=== PATIENT | male | born 2005 | race Caucasian/White ===

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

== ENCOUNTER 2024-05-31 18:23 | Emergency (ER) | payer SELFPAY ==
--- NOTE | 2024-05-31 18:40 | EDPHYS ---
Physician Documentation [facility] Name: Tony Marmolejo Age: 18 yrs Sex: Male : 2005 Arrival Date: 05/31/2024 Time: 18:23 Bed IW1 Private MD: ED Physician Dorota Hernandez HPI: 05/31 18:36 This 18 yrs old Male presents to ER via Ambulatory with complaints of Sore Throat. kb 18:36 Pt is a 18 year old male who presents for sore throat, swollen tonsils that started kb yesterday with subjective fever this morning. States he has had tonsillitis 4 times in the last few months and this feels the same. denies cough, congestion. . Historical: - Allergies: 18:36 No Known Allergies; tm6 - PMHx: 18:36 None; tm6 - PSHx: 18:36 None; tm6 - Immunization history:: Client reports having NOT received the Covid vaccine. - Infectious Disease History:: Denies. - Social history:: Smoking status: Reported history of juuling and/or vaping. Patient uses alcohol, occasionally. ROS: 18:36 Constitutional: As per HPI kb Exam: 18:36 Constitutional: This is a well developed, well nourished patient who is awake, alert, kb and in no acute distress. Head/Face: Normocephalic, atraumatic. Cardiovascular: Regular rate Respiratory: Respirations even and unlabored. No increased work of breathing. Talking in full sentences Skin: Warm, dry with normal turgor. Normal color. MS/ Extremity: Pulses equal, no cyanosis. Neurovascular intact. Full, normal range of motion. Neuro: Awake and alert, GCS 15, oriented to person, place, time, and situation. 18:36 ENT: Posterior pharynx: Airway: normal, Tonsils: bilaterally enlarged, with erythema, Uvula: normal, midline, swelling, that is moderate, erythema, that is marked, Vital Signs: 18:33 Temp 98.8; Weight 90.72 kg; Height 6 ft. 0 in. ; tm6 18:33 Pulse 65; Resp 19; Pulse Ox 100% on R/A; tm6 18:36 BP 122 / 84; MAP 97 mmHg; tm6 18:33 Body Mass Index 27.12 (90.72 kg, 182.88 cm) - Percentile 86.1 % tm6 MDM: 18:27 Medical Screening Exam initiated kb 18:37 Differential diagnosis: pharyngitis, tonsillitis, strep, bar captain. Data reviewed: vital kb signs, nurses notes. Test considered but Not performed: CT: ct soft tissue neck considered but swelling is bilateral, no trismus, MACHINIST APPRENTICE unlikely. Historians other than the Patient: Spouse/Significant Other: sig other. Counseling: I had a detailed discussion with the patient and/or guardian regarding the historical points, exam findings, and any diagnostic results supporting the discharge/admit diagnosis, the need for outpatient follow up, an ENT specialist, to return to the emergency department if symptoms worsen or persist or if there are any questions or concerns that arise at home. 05/31 18:36 Order name: Strep kb Administered Medications: 18:43 Drug: Amoxicillin-Clavulanate PO 875 mg PO once Route: PO; tm6 18:43 Follow up: Response: Medication administered at discharge. tm6 Disposition Summary: 05/31/24 18:39 Discharge Ordered Notes: Location: Home kb Condition: Stable kb Diagnosis - Streptococcal pharyngitis kb Followup: kb - With: Emergency Department - When: As needed - Reason: Worsening of condition Followup: kb - With: Private Physician - When: 2 - 3 days - Reason: Recheck today's complaints, Continuance of care, Re-evaluation by your physician Discharge Instructions: - Discharge Summary Sheet kb - Strep Throat, Adult, [id number] kb Forms: - Medication Reconciliation Form kb - Antibiotic Education kb - Prescription Opioid Use kb - Patient Portal Instructions kb - Leadership Thank You Letter kb Prescriptions: - Augmentin 875-125 mg Oral Tablet - take 1 tablet ORAL route every 12 hours for 10 days; 20 tablet; Refills: 0, kb Product Selection Permitted Signatures: Dispatcher [employer] Eliana Lambert FNP-C FNP-Ckb Masterson, Tawney RN RN tm6
--- NOTE | 2024-05-31 18:40 | ER ---
Nurse's Notes [facility] Name: Tony Marmolejo Age: 18 yrs Sex: Male : 2005 Arrival Date: 05/31/2024 Time: 18:23 Bed IW1 Private MD: Diagnosis: Streptococcal pharyngitis Presentation: 05/31 18:33 Chief complaint: Patient states: I have had tonsillitis 4-5 times in the past few tm6 months. My throat started hurting yesterday. Coronavirus screen: Client denies travel out of the [place] in the last 14 days. Ebola Screen: Patient negative for fever greater than or equal to 101.5 degrees Fahrenheit, and additional compatible Ebola Virus Disease symptoms Patient denies exposure to infectious person. Patient denies travel to an Ebola-affected area in the 21 days before illness onset. No symptoms or risks identified at this time. Initial Sepsis Screen: Does the patient meet any 2 criteria? No. Patient's initial sepsis screen is negative. Does the patient have a suspected source of infection? No. Patient's initial sepsis screen is negative. Risk Assessment: Do you want to hurt yourself or someone else? Patient reports no desire to harm self or others. Onset of symptoms was May 30, 2024. 18:33 Method Of Arrival: Ambulatory tm6 18:33 Acuity: ASIF 4 tm6 Triage Assessment: 18:33 General: Appears in no apparent distress. Behavior is calm, cooperative. Pain: tm6 Complains of pain in throat Pain began 1 day ago. EENT: Throat is reddened has enlarged tonsils Reports pain in throat. Neuro: Level of Consciousness is awake, alert, obeys commands, Oriented to person, place, time, situation. Cardiovascular: Patient's skin is warm and dry. Respiratory: Airway is patent Respiratory effort is even, unlabored, Respiratory pattern is regular, symmetrical. GI: No signs and/or symptoms were reported involving the gastrointestinal system. Abdomen is flat, non-distended. : No signs and/or symptoms were reported regarding the genitourinary system. Derm: No signs and/or symptoms reported regarding the dermatologic system. Musculoskeletal: No signs and/or symptoms reported regarding the musculoskeletal system. Historical: - Allergies: 18:36 No Known Allergies; tm6 - PMHx: 18:36 None; tm6 - PSHx: 18:36 None; tm6 - Immunization history:: Client reports having NOT received the Covid vaccine. - Infectious Disease History:: Denies. - Social history:: Smoking status: Reported history of juuling and/or vaping. Patient uses alcohol, occasionally. Screenin:45 [facility] ED Fall Risk Assessment (Adult) History of falling in the last 3 months, tm6 including since admission No falls in past 3 months (0 pts) Confusion or Disorientation No (0 pts) Intoxicated or Sedated No (0 pts) Impaired Gait No (0 pts) Mobility Assist Device Used No (0 pt) Altered Elimination No (0 pt) Score/Fall Risk Level 0 - 2 = Low Risk Oriented to surroundings, Maintained a safe environment, Educated pt \T\ family on fall prevention, incl call for assistance when getting out of bed. Abuse screen: Denies threats or abuse. Denies injuries from another. Nutritional screening: No deficits noted. Tuberculosis screening: No symptoms or risk factors identified. Assessment: 18:45 Reassessment: see triage assessment. Respiratory: Airway is patent Respiratory effort tm6 is even, unlabored, Respiratory pattern is regular, symmetrical, Breath sounds are clear. Vital Signs: 18:33 Temp 98.8; Weight 90.72 kg; Height 6 ft. 0 in. ; tm6 18:33 Pulse 65; Resp 19; Pulse Ox 100% on R/A; tm6 18:36 BP 122 / 84; MAP 97 mmHg; tm6 18:33 Body Mass Index 27.12 (90.72 kg, 182.88 cm) - Percentile 86.1 % tm6 ED Course: 18:27 Patient arrived in ED. mr 18:27 Eliana Guerra FNP-C is [facility]. kb 18:27 Dorota Hernandez MD is Attending Physician. kb 18:33 Arm band placed on right wrist. tm6 18:34 Triage completed. tm6 18:39 Strep Sent. tm6 18:45 Patient has correct armband on for positive identification. Provided Education on: use tm6 of prescription medication, follow up with ENT. 18:45 No provider procedures requiring assistance completed. Patient did not have IV access tm6 during this emergency room visit. Administered Medications: 18:43 Drug: Amoxicillin-Clavulanate PO 875 mg PO once Route: PO; tm6 18:43 Follow up: Response: Medication administered at discharge. tm6 Medication: 18:45 VIS not applicable for this client. tm6 Outcome: 18:39 Discharge ordered by . reggie 18:45 Discharged to home ambulatory, with friend, tm6 18:45 Condition: stable 18:45 Discharge instructions given to patient, friend, Instructed on discharge instructions, follow up and referral plans. medication usage, Demonstrated understanding of instructions, follow-up care, medications, Prescriptions given X 1, 18:46 Patient left the ED. tm6 Signatures: Eliana Guerra, TEMPERATURE REGULATOR-C TEMPERATURE REGULATOR-Anamika Wood, Reg Reg mr Anaya Park, RN RN tm6
[2024-05-31] MEDS ORDERED: AMOX/K CLAV 875 MG TAB ONE (18:41)
[2024-05-31 18:50] VITALS: TEMP 98.8; O2SAT 100
[2024-05-31 18:51] VITALS: BP 122/84
== END 2024-05-31 18:46 | disposition home or self-care (01) ==
LOC: ER 18:23
DX: J02.0 Streptococcal pharyngitis (principal)
CPT/HCPCS: 87070; 87081; 99283

== ENCOUNTER 2024-06-01 00:53 | Emergency (ER) | payer SELFPAY ==
[2024-06-01] MEDS ORDERED: CEFTRIAXONE 1000 MG/VIAL ONE (01:15)
[2024-06-01] MEDS ORDERED: ACETAMINOPHEN 500 MG TAB ONE (01:16)
[2024-06-01] MEDS ORDERED: ONDANSETRON 4 MG (ODT) TAB ONE (01:16)
[2024-06-01] MEDS ORDERED: KETOROLAC 30 MG/ML INJ ONE (01:16)
[2024-06-01] MEDS ORDERED: TRAMADOL HCL 50 MG TAB ONE (01:17)
[2024-06-01] MEDS ORDERED: WATER FOR INJ,STERILE 10 ML ONE (01:17)
--- NOTE | 2024-06-01 01:39 | EDPHYS ---
Physician Documentation [facility] Name: Tony Marmolejo Age: 18 yrs Sex: Male : 2005 Arrival Date: 06/01/2024 Time: 00:53 Bed DX3 Private MD: ED Physician Jose F Jacobs HPI: 06/01 01:00 This 18 yrs old Other Race Male presents to ER via Unassigned with complaints of Sore sp4 Throat. Historical: - Allergies: 00:56 No Known Allergies; ha1 - PMHx: 00:56 None; ha1 - Immunization history:: Adult Immunizations up to date. - Infectious Disease History:: Denies. - Social history:: Smoking status: Reported history of juuling and/or vaping. Vital Signs: 00:59 BP 134 / 82; Pulse 106; Resp 19 S; Temp 103; Pulse Ox 96% on R/A; Weight 95.25 kg; ha1 Height 6 ft. 0 in. ; 01:45 BP 131 / 81; Pulse 100; Resp 19 S; Temp 100.2; Pulse Ox 100% on R/A; ha1 00:59 Body Mass Index 28.48 (95.25 kg, 182.88 cm) - Percentile 91.0 % ha1 MDM: 01:11 Medical Screening Exam initiated sp4 Administered Medications: 01:20 Drug: traMADol PO 100 mg PO once Route: PO; ha1 01:51 Follow up: Response: No adverse reaction; Marked relief of symptoms ha1 01:20 Drug: Acetaminophen PO 500 mg PO once Route: PO; ha1 01:50 Follow up: Response: No adverse reaction; Marked relief of symptoms; Temperature is ha1 decreased 01:20 Drug: Ondansetron PO 8 mg PO once Route: PO; ha1 01:49 Follow up: Response: No adverse reaction ha1 01:22 Drug: Rocephin (cefTRIAXone) IM 1 grams IM once Route: IM; Site: left deltoid; ha1 01:50 Follow up: Response: No adverse reaction; Marked relief of symptoms ha1 01:25 Drug: Ketorolac IM 60 mg IM once Route: IM; Site: right deltoid; ha1 01:52 Follow up: Response: No adverse reaction; Marked relief of symptoms ha1 Disposition Summary: 06/01/24 01:38 Discharge Ordered Notes: Continue Augmentin that was prescribed on the prior ER visit Location: Home sp4 Problem: new sp4 Symptoms: have improved sp4 Condition: Stable sp4 Diagnosis - Acute Exudative Tonsillitis sp4 Followup: sp4 - With: Marine Knox MD - When: 10 - 14 days - Reason: Recheck today's complaints Discharge Instructions: - Discharge Summary Sheet sp4 - Tonsillitis, [id number] sp4 Forms: - Patient Portal Instructions sp4 Signatures: Alina Brannon RN RN ha1 Jose F Jacobs MD MD sp4
--- NOTE | 2024-06-01 01:39 | ER ---
Nurse's Notes [facility] Name: Tony Marmolejo Age: 18 yrs Sex: Male : 2005 Arrival Date: 06/01/2024 Time: 00:53 Bed DX3 Private MD: Diagnosis: Acute Exudative Tonsillitis Presentation: 06/01 00:59 Chief complaint: SORE THROAT AND FEVER, WAS HERE TODAY GOT PRESCRIBE ANTIBIOTICS BUT ha1 WAS UNABLE TO PICK IT UP FROM PHARMACY. TOOK 500 MG OF TYLENOL. 00:59 Coronavirus screen: Vaccine status: Patient reports being unvaccinated. Ebola Screen: ha1 No symptoms or risks identified at this time. Initial Sepsis Screen: Does the patient meet any 2 criteria? No. Patient's initial sepsis screen is negative. Does the patient have a suspected source of infection? No. Patient's initial sepsis screen is negative. Risk Assessment: Do you want to hurt yourself or someone else? Patient reports no desire to harm self or others. Onset of symptoms was June 01, 2024. 00:59 Method Of Arrival: Ambulatory ha1 00:59 Acuity: ASIF 4 ha1 Triage Assessment: 00:56 General: Appears uncomfortable, Behavior is cooperative. Pain: Complains of pain in ha1 SORE THROAT Pain does not radiate. Pain currently is 9 out of 10 on a pain scale. Quality of pain is described as burning, aching, Pain began 2-3 days ago. EENT: Throat is reddened. Neuro: Level of Consciousness is awake, alert, obeys commands, Oriented to person, place, time, situation. Cardiovascular: Capillary refill < 3 seconds Patient's skin is warm and dry. Respiratory: Airway is patent Respiratory effort is even, unlabored, Respiratory pattern is regular, symmetrical. GI: No signs and/or symptoms were reported involving the gastrointestinal system. Abdomen is round non-distended. : No signs and/or symptoms were reported regarding the genitourinary system. Derm: Skin is pink, warm \T\ dry. Musculoskeletal: Circulation, motion, and sensation intact. Range of motion: intact in all extremities. Historical: - Allergies: 00:56 No Known Allergies; ha1 - PMHx: 00:56 None; ha1 - Immunization history:: Adult Immunizations up to date. - Infectious Disease History:: Denies. - Social history:: Smoking status: Reported history of juuling and/or vaping. Screenin:42 [facility] ED Fall Risk Assessment (Adult) History of falling in the last 3 months, ha1 including since admission No falls in past 3 months (0 pts) Confusion or Disorientation No (0 pts) Intoxicated or Sedated No (0 pts) Impaired Gait No (0 pts) Mobility Assist Device Used No (0 pt) Altered Elimination No (0 pt) Score/Fall Risk Level 0 - 2 = Low Risk Oriented to surroundings, Maintained a safe environment, Hourly rounding (assess needs \T\ fall precautionary measures) done. Abuse screen: Denies threats or abuse. Denies injuries from another. Nutritional screening: No deficits noted. Tuberculosis screening: No symptoms or risk factors identified. Assessment: 00:56 Reassessment: SEE TRIAGE ASSESSMENT. ha1 01:53 Reassessment: Patient and/or family updated on plan of care and expected duration. Pain ha1 level reassessed. Patient is alert, oriented x 3, equal unlabored respirations, skin warm/dry/pink. Patient states symptoms have improved. Vital Signs: 00:59 BP 134 / 82; Pulse 106; Resp 19 S; Temp 103; Pulse Ox 96% on R/A; Weight 95.25 kg; ha1 Height 6 ft. 0 in. ; 01:45 BP 131 / 81; Pulse 100; Resp 19 S; Temp 100.2; Pulse Ox 100% on R/A; ha1 00:59 Body Mass Index 28.48 (95.25 kg, 182.88 cm) - Percentile 91.0 % ha1 ED Course: 00:54 Patient arrived in ED. im 00:56 Patient has correct armband on for positive identification. Bed in low position. Call ha1 light in reach. Side rails up X 1. Adult w/ patient. 00:56 Arm band placed on right wrist. ha1 01:00 Jose F Jacobs MD is Attending Physician. sp4 01:04 Alina Brannon RN is Primary Nurse. ha1 01:12 Triage completed. ha1 01:38 Marine Knox MD is Referral Physician. sp4 Administered Medications: 01:20 Drug: traMADol PO 100 mg PO once Route: PO; ha1 01:51 Follow up: Response: No adverse reaction; Marked relief of symptoms ha1 01:20 Drug: Acetaminophen PO 500 mg PO once Route: PO; ha1 01:50 Follow up: Response: No adverse reaction; Marked relief of symptoms; Temperature is ha1 decreased 01:20 Drug: Ondansetron PO 8 mg PO once Route: PO; ha1 01:49 Follow up: Response: No adverse reaction ha1 01:22 Drug: Rocephin (cefTRIAXone) IM 1 grams IM once Route: IM; Site: left deltoid; ha1 01:50 Follow up: Response: No adverse reaction; Marked relief of symptoms ha1 01:25 Drug: Ketorolac IM 60 mg IM once Route: IM; Site: right deltoid; ha1 01:52 Follow up: Response: No adverse reaction; Marked relief of symptoms ha1 Medication: 01:44 VIS not applicable for this client. ha1 Outcome: 01:38 Discharge ordered by . sp4 01:55 Patient left the ED. [facility] Signatures: Alina Brannon RN RN ha1 Jose F Jacobs MD MD sp4 Yelena Borja
[2024-06-01 03:05] VITALS: BP 131/81; TEMP 100.2; O2SAT 100
== END 2024-06-01 01:55 | disposition home or self-care (01) ==
LOC: ER 00:53
DX: J03.90 Acute tonsillitis, unspecified (principal)
CPT/HCPCS: J0696; Q0162